=== PATIENT | male | born 1940 | race Caucasian/White ===

== ENCOUNTER → 2019-02-25 08:39 | Outpatient (CLI) | payer MEDICARE, BC | END | disposition home or self-care (01) | LOC: D.RT 08:39 | PROVIDERS: ATTEND Internal Medicine Pulmonary Disease | DX: J44.9 Chronic obstructive pulmonary disease, unspecified (principal) ==

== ENCOUNTER 2020-09-30 22:27 | Inpatient (IN) | payer MEDICARE, BC ==
[~2020-09-30] VITALS: Ht 157.5 cm; Wt 43.5 kg
[2020-09-30] MEDS ORDERED: FUROSEMIDE20 MG PO (23:01)
[2020-09-30] MEDS ORDERED: LIDODERM 5 %1 PATCH TRANSDERM (23:02)
[2020-09-30] MEDS ORDERED: SENNA LAXATIVE8.6 MG PO (23:04)
[2020-09-30] MEDS ORDERED: ULTRAM50 MG PO (23:06)
[2020-09-30] MEDS ORDERED: BAYER CHEWABLE81 MG PO (23:07)
[2020-09-30] MEDS ORDERED: AZELASTINE137 MCG/0. NASAL (23:07)
[2020-09-30] MEDS ORDERED: PULMICORT0.5 MG/21 INH (23:08)
[2020-09-30] MEDS ORDERED: COREG 3.1253.125 MG PO (23:09)
[2020-09-30] MEDS ORDERED: PLAVIX75 MG PO (23:09)
[2020-09-30] MEDS ORDERED: ATROVENT 0.02%2.5 ML UPD (23:10)
[2020-09-30] MEDS ORDERED: MELATONIN5 M3 PO (23:11)
[2020-09-30] MEDS ORDERED: PROTONIX40 MG PO (23:11)
[2020-09-30] MEDS ORDERED: MULTI-DAY VITAM1 TAB PO (23:11)
[2020-09-30] MEDS ORDERED: ZOCOR20 MG PO (23:12)
[2020-09-30] MEDS ORDERED: DALIRESP250 MCG PO (23:12)
[2020-09-30] MEDS ORDERED: ZOLOFT100 MG PO (23:14)
[2020-09-30] MEDS ORDERED: ALBUTEROL SULF8.5 GM INH (23:14)
[2020-09-30] MEDS ORDERED: NITROSTAT0.4 MG SL (23:15)
--- NOTE | 2020-09-30 23:29 | NUR ---
RECEIVED PATIENT VIA EMS, HE IS AN ADMISSION FROM [facility] DUE TO AGGRESSIVE AND SEXUALLY INAPPROPRIATE BEHAVIOR AT THE PRISON. ON ARRIVAL HE WAS TALKATIVE, FRIENDLY AND MAKING JOKES, HE IS AWAKE, ALERT AND ORIENTED TO SELF ONLY, HE IS PLEASANT ON ADMISSION AND SMILES APPROPRIATLEY, HE HAS BEEN ORIENTED TO THE UNIT AND HIS ROOM AND THE UNIT RULES, HIS CODE NUMBER IS [id number] AND THIS NUMBER HAS BEEN GIVEN TO HIS SON, SUMIT ANNAJR. HE IS ON OXYGEN FOR COPD. WILL MONITOR PATIENT.
[2020-10-01 00:04] VITALS: BMI 17.9
[2020-10-01 07:01] LABS: BASOPHILS 1.5 % (0-2); EOSINOPHILS 4.8 % (0-7); HEMATOCRIT 26.2 % (42.0-54.0); HEMOGLOBIN 8.5 g/dL (13.5-17.5); MCH 27.2 pg (26.0-34.0); MCHC 32.6 g/dL (31.0-37.0); MCV 83.4 fL (80.0-100.0); MEAN PLATELET VOLUME 7.2 fL (7.4-10.4); NEUTROPHILS 67.7 % (40-80); PLATELET COUNT 266 10x3/uL (130-400); RBC 3.14 10x6/uL (4.20-6.10); RDW 18.9 % (11.5-14.5)
[2020-10-01 07:39] LABS: ALBUMIN 2.6 g/dL (3.4-5.0); ALKALINE PHOSPHATASE 76 U/L (30-120); ALT (SGPT) 23 U/L (10-68); BILIRUBIN - TOTAL 0.32 mg/dL (0.2-1.3); CALC OSMOLALITY 277 mosm/kg (275-300); CALCIUM 7.8 mg/dL (8.5-10.1); CARBON DIOXIDE 26.5 mmol/L (21.0-32.0); CHLORIDE - SERUM 105 mmol/L (98-107); CHOL - HDL RATIO 3.2 ratio (2.3-4.9); CHOLESTEROL, TOTAL 141 mg/dL (0-200); CREATININE - SERUM 0.7 mg/dL (0.6-1.3); GLUCOSE 71 mg/dL (74-106); HDL CHOLESTEROL 44 mg/dL (32-96); LDL CHOLESTEROL 78 mg/dL (0-100); LDL-HDL RATIO 1.8 ratio (1.5-3.5); POTASSIUM - SERUM 3.8 mmol/L (3.5-5.1); PROTEIN - SERUM 5.8 g/dL (6.4-8.2); SODIUM 139 mmol/L (136-145); THYROID STIMULATING HORMONE 0.16 uIU/mL (0.36-3.74); TRIGLYCERIDE 96 mg/dL (30-200); UREA NITROGEN 17 mg/dL (7-18); eGFR NON AFRICAN AMERICAN > 90 mL/min (90-120)
[2020-10-01 08:04] VITALS: BP 153/66
[2020-10-01 11:32] VITALS: BP 153/66
[2020-10-01 13:02] LABS: T4 THYROXINE 6.2 ug/dL (4.7-13.3)
[2020-10-01 13:05] VITALS: Ht 157.5 cm; Wt 43.5 kg
--- NOTE | 2020-10-01 15:28 | NUR ---
Rec'd patient this am sitting by nurses station in a w/c. He is humped over at his waist. He is A/O times 1 to person. He did not have meds ordered to be taken this am. He is on oxygen at 2 liters via nasal cannula. He is easily aggitated and argumentive. He uses foul language often. This nurse has not observed or noted any inappro. sexual behaviors. He is just aggressive and argumentive with staff. He will move his w/c in the pathway for staff and patients and will not move until staff moves his w/c. He is not redirectable. He would not participate in group therapy today.
[2020-10-01 20:00] VITALS: BP 146/74
--- NOTE | 2020-10-02 00:20 | NUR ---
RECEIVED PATIENT IN DAYROOM, SITTING CALMLY, ON OXYGEN, NO NEGATIVE BEHAVIORS NOTED. VERY PLEASANT AT THIS TIME. COMPLIANT WITH MEDS. WILL FOLLOW POC
[2020-10-02 07:14] LABS: RAPID PLASMA REAGIN Non Reactive (Non Reactive)
[2020-10-02 10:36] VITALS: BP 152/89
--- NOTE | 2020-10-02 17:28 | NUR ---
ALERT, CONFUSED, COMBATIVE AT TIMES WITH RE-DIRECTION. MEDS ADMIN PER ORDERS WITH COMPLETE MED COMPLIANCE NOTED. NO ADVERSE REACTION TO MEDS. RECEIVES UPDRAFTS ON SCHEDULE PER RT. CONTINUE PLAN OF CARE.
--- NOTE | 2020-10-02 18:55 | NUR ---
PATIENT EXPERIENCING ANXIETY, YELLING, CURSING, AND HITTING STAFF. ATIVAN 0.5 MG AND HALDOL 2 MG ADMIN IM. MONTY WELL.
[2020-10-02 20:00] VITALS: BP 137/60
--- NOTE | 2020-10-03 00:26 | NUR ---
RECEIVED PATIENT IN HALLWAY NEAR NURSE'S STATION, SITTING CALMLY, HE WAS GIVEN A PRN ON PREVIOUS SHIFT. HE IS VERY CONFUSED. COMPLIANT WITH MEDS. WILL FOLLOW POC
[2020-10-03 07:19] LABS: BASOPHILS 1.7 % (0-2); EOSINOPHILS 4.9 % (0-7); HEMATOCRIT 30.8 % (42.0-54.0); HEMOGLOBIN 10.3 g/dL (13.5-17.5); LYMPHOCYTES 14.7 % (15-50); MCH 27.6 pg (26.0-34.0); MCHC 33.4 g/dL (31.0-37.0); MCV 82.6 fL (80.0-100.0); MEAN PLATELET VOLUME 6.9 fL (7.4-10.4); MONOCYTES 7.7 % (2-11); RBC 3.73 10x6/uL (4.20-6.10); RDW 19.2 % (11.5-14.5); RETIC 1.38 % (0.45-2.28); WBC 5.8 10x3/uL (4.8-10.8)
[2020-10-03 07:22] LABS: PLATELET COUNT 347 10x3/uL (130-400)
[2020-10-03 07:30] VITALS: BP 166/64
[2020-10-03 07:31] LABS: % SATURATION 21 % (15-55); IRON 37 ug/dl (35-150); TOTAL IRON BIND CAPACITY 171 ug/dl (260-445); UNSAT IRON BIND CAPACITY 134 ug/dl (150-375)
--- NOTE | 2020-10-03 17:36 | NUR ---
Alert, calm, difficult to re-direct, no aggression thus far this shift. Has difficulty following directions. Meds admin. per orders with complete med compliance noted. No adverse reaction to meds. Continue plan of care, monitoring for aggression and inappropriate behavior.
[2020-10-03 23:36] VITALS: BP 164/57
--- NOTE | 2020-10-04 00:03 | NUR ---
RECEIVED IN HALLWAY OUTSIDE OF NURSES STATION. RESTING EYES OPEN IN A RECLINER. RESTLESS AT TIMES. CALM AND COOPERATIVE WITH CARE AND ASSESSMENT. NO SIGNS OF AGGRESSION. REDIRECT AND REORIENT NEEDED. RESTING IN BED WITH EYES CLOSED AT THIS TIME. CONTINUE PLAN OF CARE.
[2020-10-04 07:30] VITALS: BP 137/59
--- NOTE | 2020-10-04 12:15 | NUR ---
RECEIVED IN HALLWAY OUTSIDE OF NURSES STATION. SITTING IN CHAIR. CALM AND COOPERATIVE WITH CARE AND ASSESSMENT. NO AGGRESSIVE BEHAVIOR BUT DOES BECOME AGITATED WITH REDIRECTION AT TIMES. NO SEXUALLY INAPPROPRIATE BEHAVIOR. REDIRECT AND REORIENT NEEDED. EATING LUNCH AT THIS TIME. CONTINUE PLAN OF CARE.
--- NOTE | 2020-10-04 20:28 | NUR ---
RECEIVED IN HALLWAY OUTSIDE OF NURSES STATION. SOCIAL WITH STAFF AND PEERS. CALM AND COOPERATIVE WITH CARE AND ASSESSMENT. NO SIGNS OF AGGRESSION. REDIRECT AND REORIENT NEEDED. CONTINUES TO SIT QUIETLY IN HALLWAY. CONTINUE PLAN OF CARE.
[2020-10-04 23:05] VITALS: BP 146/65
[2020-10-05 07:11] LABS: BACTERIA FEW HPF (NONE SEEN); BILIRUBIN NEGATIVE (NEGATIVE); KETONE NEGATIVE (NEGATIVE); NITRITE NEGATIVE (NEGATIVE); SQUAMOUS EPITHELIAL 0-5 HPF (0-4); UROBILINOGEN NORMAL mg/dL (< 2); WHITE CELLS - URINE 0-5 HPF (0-1)
[2020-10-05 08:00] VITALS: BP 102/57
--- NOTE | 2020-10-05 08:00 | NUR ---
RECEIVED PATIENT SITTING IN RECLINING CHAIR IN THE HALLWAY. [employer] REPORTED TO NURSE PATIENT'S O2 SAT LOW AT THIS TIME. NURSE ASSESSED PT AT THIS TIME. VITAL SIGNS: BLOOD PRESSURE 102/57 TEMPERATURE 100.8 AX. PULSE 52 O2 SAT 77 AT 2L VIA NASAL CANNULA AT THIS TIME. RESPIRATORY CONTACTED AT THIS TIME. DR. BENSON CONTACTED. NEW ORDERS FOR ABG'S, CBC, BMP,and CHEST X-RAY STAT. NEW ORDER TO START IV AND INFUSE INFUSE NORMAL SALINE AT 75 MLS/ HOUR. NEW ORDER TO START lEVAQUIN 500 MG IV DAILY X7 DAYS FOR PNEUMONIA. NEW ORDER TO CONSULT PULMONOLOGY. NEW ORDER TO RESTART LASIX 10 MG P.O. EVERY OTHER DAY AT THIS TIME. ALL NEW ORDERS VERIFIED AND READ BACK. oRDERS TO TRANSFER PATIENT TO MED FLOOR PER ORDER FAXED TO [facility] AT THIS TIME. AWAITING ON A BED ON MEDICAL FLOOR AT THIS TIME. ATTEMPTED TO CONTACT PT'S SON FOR UPDATE X3. NO ANSWER AT THIS TIME AND UNABLE TO LEAVE VOICEMAIL. WILL CONTINUE TO CONTACT. WILL CPOC.
[2020-10-05 09:30] LABS: BASOPHILS 0.6 % (0-2); EOSINOPHILS 0 % (0-7); HEMATOCRIT 32.7 % (42.0-54.0); HEMOGLOBIN 10.6 g/dL (13.5-17.5); LYMPHOCYTES 4.6 % (15-50); MCH 26.8 pg (26.0-34.0); MCHC 32.5 g/dL (31.0-37.0); MCV 82.4 fL (80.0-100.0); MEAN PLATELET VOLUME 6.8 fL (7.4-10.4); MONOCYTES 5.4 % (2-11); NEUTROPHILS 89.4 % (40-80); PLATELET COUNT 318 10x3/uL (130-400); RBC 3.97 10x6/uL (4.20-6.10); RDW 19.4 % (11.5-14.5); WBC 11.2 10x3/uL (4.8-10.8)
[2020-10-05 09:42] LABS: CALC OSMOLALITY 281 mosm/kg (275-300); CALCIUM 8.6 mg/dL (8.5-10.1); CARBON DIOXIDE 27.5 mmol/L (21.0-32.0); CHLORIDE - SERUM 103 mmol/L (98-107); CREATININE - SERUM 0.9 mg/dL (0.6-1.3); GLUCOSE 108 mg/dL (74-106); POTASSIUM - SERUM 4.2 mmol/L (3.5-5.1); SODIUM 136 mmol/L (136-145); UREA NITROGEN 37 mg/dL (7-18); eGFR NON AFRICAN AMERICAN 86 mL/min (90-120)
--- NOTE | 2020-10-05 10:00 | NUR ---
this nurse contacted medical records and requested chest x-ray from [facility] visit on September 24, 2020. Release of information form faxed per request to Lilliana at medical records at [facility]. Comparison of results on 09/24/2020 and results of today's chest x-ray compared and reviewed with Cathleen Solis APRN at this time. Copy of the paper results noted in pts chart.
[2020-10-05] MEDS ORDERED: COREG6.25 MG PO (10:37)
[2020-10-05] MEDS ORDERED: SEROQUEL25 MG PO (10:38)
[2020-10-05] MEDS ORDERED: FOLIC ACID1 MG PO (10:39)
--- NOTE | 2020-10-05 14:00 | NUR ---
22-GAUGE IV PLACED INTO LEFT UPPER PER Pradeep STEVEN RN AT THIS TIME. N/S AT 75ML/HR VIA PUMP. MEDICATIONS ADMINISTERED PER MYA STEVEN RN. INITIAL DOSE OF LEVAQUIN 500MG IV STARTED PER ORDER. DR. BENSON CHANGED LEVAQUIN FROM 750 MG TO 500MG IV DUE TO ELEVATED BUN AT THIS TIME. WILL CPOC.
--- NOTE | 2020-10-05 15:08 | NUR ---
PT UNABLE TO SWALLOW MEDICATIONS CRUSHED IN PUDDING AT THIS TIME. DR. BENSON NOTIFIED. LASIX 10MG PO CHANGED TO IV AT THIS TIME. WILL CPOC.
--- NOTE | 2020-10-05 16:15 | NUR ---
REPORT CALLED TO [facility]. ALL DISCHARGE PAPERWORK FAXED AND COPY SENT WITH PT AT THIS TIME. PT TRANSPORTED TO [facility] 2222 PER STAFF X 2. NO S/SX OF DISTRESS NOTED.
--- NOTE | 2020-10-06 12:46 | DS ---
PATIENT:SUMIT ANNA :36 MEDICAL RECORD: [id number] DISCHARGE SUMMARY ADMISSION DATE: 09/30/20 DISCHARGE DATE: 10/05/20 IDENTIFYING DATA: The patient is 79 years old and he was admitted to the hospital on a voluntary basis. CHIEF COMPLAINT: Aggression. HISTORY OF PRESENT ILLNESS: The patient is seriously medically ill person who was at [facility]. He has COPD and is oxygen dependent. He also has hypertension and a long history of dementia. He is only oriented to person. He apparently became aggressive at the assisted and was referred to us to address these behaviors. HOSPITAL COURSE: The patient was admitted to the behavioral unit on 09/30. He was started on medication for his agitation, but unfortunately on 10/05, he was found to have reduced breath sounds and an x-ray revealed pneumonia. He was subsequently transferred to the medical floor for ongoing management. DISCHARGE DIAGNOSES: AXIS I: Major neurocognitive disorder of the Alzheimer's type with behavioral disturbances. AXIS II: None. AXIS III: Pneumonia, chronic obstructive pulmonary disease, hypertension. AXIS IV: Moderate. AXIS V: Global assessment of functioning is 35. PLAN: At the time of discharge, the patient was not representing an acute danger to others. His long-term prognosis is guarded. TRANSINT:[id number] Voice Confirmation ID: [id number] DOCUMENT ID: [id number] POOJA ANGULO MD at 1246 CC: [id number] DICTATION DATE: 10/05/20 172 [employer]ICING AND INVENTORY CLERK: 10/06/20 0300 DIS IN 10/05/20 [place] [id number] [place] [id number]
== END 2020-10-05 16:15 | disposition short-term general hospital (02) | DRG 56 ==
LOC: D.PSYCH 22:27
PROVIDERS: Family Medicine; ADMIT Psychiatry & Neurology Psychiatry; ATTEND Psychiatry & Neurology Psychiatry
DX: G30.1 Alzheimer's disease with late onset (principal); J18.9 Pneumonia, unspecified organism; F02.81 Dementia in other diseases classified elsewhere, unspecified severity, with behavioral disturbance; J43.9 Emphysema, unspecified; I10 Essential (primary) hypertension; F34.1 Dysthymic disorder; K21.9 Gastro-esophageal reflux disease without esophagitis; E78.5 Hyperlipidemia, unspecified; K59.01 Slow transit constipation; J30.9 Allergic rhinitis, unspecified; D64.9 Anemia, unspecified; E88.09 Other disorders of plasma-protein metabolism, not elsewhere classified; E05.80 Other thyrotoxicosis without thyrotoxic crisis or storm

== ENCOUNTER 2020-10-05 16:58 | Inpatient (IN) | payer MEDICARE, BC ==
[~2020-10-05] VITALS: Ht 157.5 cm; Wt 44.5 kg
--- NOTE | 2020-10-05 16:30 | NUR ---
RECEIVED TO ROOM [address] [facility]. NON RESPONSIVE TO VERBAL OR TACTILE STIMULATION. WON'T FOLLOW SIMPLE COMMANDS TO MOVE EYES. SKIN IS INTACT WITHOUT REDNESS. SOME REDNESS NOTED TO SPINE AND HEELS, NO BROKEN SKIN. IV TO LEFT FOREARM IS PATENT WITHOUT REDNESS AT INSERTION SITE. INCONTINENT OF URINE SKIN CARE PER STAFF.
[~2020-10-05 16:58] MED LIST: ALBUTEROL SULF8.5 GM INH; ATROVENT 0.02%2.5 ML UPD; AZELASTINE137 MCG/0. NASAL; BAYER CHEWABLE81 MG PO; COREG 3.1253.125 MG PO; COREG6.25 MG PO; DALIRESP250 MCG PO; FOLIC ACID1 MG PO; FUROSEMIDE20 MG PO; LIDODERM 5 %1 PATCH TRANSDERM; MELATONIN5 M3 PO; MULTI-DAY VITAM1 TAB PO; NITROSTAT0.4 MG SL; PLAVIX75 MG PO; PROTONIX40 MG PO; PULMICORT0.5 MG/21 INH; SENNA LAXATIVE8.6 MG PO; SEROQUEL25 MG PO; ULTRAM50 MG PO; ZOCOR20 MG PO; ZOLOFT100 MG PO
[2020-10-05 17:09] VITALS: BP 99/45; BMI 17.9
--- NOTE | 2020-10-05 18:40 | NUR ---
NO CHANGES SINCE HE ARRIVED. NO NEEDS NOTED.
[2020-10-05 19:35] VITALS: BP 110/48
--- NOTE | 2020-10-06 04:45 | NUR ---
PATIENT HAD WET SOUNDING LUNGS AND STARTED OUT AT 6 L NC DUE TO SATURATIONS IN THE 80'S, WE BUMPED HIM UP TO 9 L NC AND HE CAME UP TO THE 90'S. LATER HE DROPPED DOWN TO 84 I CALLED RESPIRATORY AND WE PUT HIM ON HIGH FLOW AT 15L NC. I CALLED AND SPOKE WITH DR. BENSON AND HE ORDERED 40MG LASIX IV 1 TIME. PATIENT CONTINUES TO HOLLAR OUT. HE IS CURRENTLY RESTING IN BED.
[2020-10-06 05:15] VITALS: BP 101/52
--- NOTE | 2020-10-06 08:58 | NUR ---
AWAKE AND CONFUSED. COMBATIVE AND REFUSING ASSESSMENT AT THIS TIME. TECH IN ROOM ATTEMPTING BLOOD DRAW. BED IN LOWEST POSITION, BED RAILS X2, CALL LIGHT WITHIN REACH. WILL CONTINUE POC. O2 NASAL CANNULA IN PLACE AT THIS TIME.
[2020-10-06 09:15] LABS: BASOPHILS 0.1 % (0-2); EOSINOPHILS 0 % (0-7); HEMATOCRIT 27.5 % (42.0-54.0); HEMOGLOBIN 8.9 g/dL (13.5-17.5); LYMPHOCYTES 3.7 % (15-50); MCH 26.6 pg (26.0-34.0); MCHC 32.3 g/dL (31.0-37.0); MCV 82.3 fL (80.0-100.0); MEAN PLATELET VOLUME 7.2 fL (7.4-10.4); MONOCYTES 5.8 % (2-11); NEUTROPHILS 90.4 % (40-80); PLATELET COUNT 277 10x3/uL (130-400); RBC 3.34 10x6/uL (4.20-6.10); RDW 19.6 % (11.5-14.5); WBC 11.6 10x3/uL (4.8-10.8)
[2020-10-06 09:31] LABS: ALBUMIN 2.4 g/dL (3.4-5.0); ALKALINE PHOSPHATASE 56 U/L (30-120); ALT (SGPT) 21 U/L (10-68); BILIRUBIN - TOTAL 0.59 mg/dL (0.2-1.3); CALC OSMOLALITY 292 mosm/kg (275-300); CALCIUM 7.8 mg/dL (8.5-10.1); CARBON DIOXIDE 27.9 mmol/L (21.0-32.0); CHLORIDE - SERUM 106 mmol/L (98-107); CREATININE - SERUM 0.9 mg/dL (0.6-1.3); GLUCOSE 110 mg/dL (74-106); PROTEIN - SERUM 5.5 g/dL (6.4-8.2); SODIUM 141 mmol/L (136-145); UREA NITROGEN 42 mg/dL (7-18); eGFR NON AFRICAN AMERICAN 86 mL/min (90-120)
[2020-10-06 09:42] LABS: POTASSIUM - SERUM 3.4 mmol/L (3.5-5.1)
--- NOTE | 2020-10-06 12:48 | NUR ---
I have reviewed this patient and I concur with the Shift Assessment completed by the Licensed Practical Nurse today this shift.
[2020-10-06 14:51] VITALS: Ht 157.5 cm; Wt 44.5 kg
--- NOTE | 2020-10-06 17:24 | NUR ---
HUNG IV ABX AND REPLACED IV FLUID BAG. TOLERATING WELL. LESS COMBATIVE THIS EVENING. RESTING IN BED. DENIES ANY NEEDS. BED IN LOWEST POSITION, BED RAILS X2, CALL LIGHT WITHIN REACH. WILL CONTINUE POC.
--- NOTE | 2020-10-06 18:29 | NUR ---
HUNG IV ABX, TOLERATING WELL. RESTING IN BED SUPINE. WILL CONTINUE POC.
[2020-10-06 20:00] VITALS: BP 126/44
--- NOTE | 2020-10-07 03:13 | NUR ---
I have reviewed this patient and I concur with the Shift Assessment completed by the Licensed Practical Nurse today this shift.
[2020-10-07 04:00] VITALS: BP 112/50
--- NOTE | 2020-10-07 08:00 | NUR ---
PATIENT IN BED WITH IV INTACT. NO COMPLAINTS OR SIGNS OF DISTRESS. PATIENT CONFUSED. O2 ON. WANTS TO EAT. EXPLAINED STILL NPO. BA ON. CALL LIGHT WITHIN REACH.
[2020-10-07 08:46] VITALS: BP 135/53
--- NOTE | 2020-10-07 10:30 | NUR ---
PATIENT IN BED WITH IV INTACT. NO COMPLAINTS OR SIGNS OF DISTRESS. PLEASANTLY CONFUSED. SPOKE WITH SON. CALL LIGHT WITHIN REACH.
[2020-10-07 13:10] VITALS: BP 139/52
--- NOTE | 2020-10-07 13:10 | NUR ---
PATIENT NEW ORDERS FOR PUREE DIET AND NECTAR THICK LIQUIDS. ATE A WHOLE PUDDING AND TOOK ANTIBIOTICS. DRANK 240 ML OF NECTAR THICK MILK. TOLERATED WITH NO PROBLEMS. NO CHOKING OR COUGHIN. IV REMOVED BECAUSE CLOTTED OFF. GOING BACK TO [place] LATER. CALL LIGHT WITHIN REACH.
--- NOTE | 2020-10-07 13:21 | NUR ---
Nutrition follow-up: Pts diet advanced to puree with nectar thick liquids per speech pathologist Labs reviewed Wt: 97# BIPAP PRN Will provide food choices with selective menus and honor food preferences within diet modification restricitons. Will offer nutritional supplements. RDN will follow-up pts progress toward nutrition goals with 3-5 days.
[2020-10-07] MEDS ORDERED: ZITHROMAX250 MG PO (13:29)
[2020-10-07] MEDS ORDERED: LEVOFLOXACIN500 MG PO (13:29)
[2020-10-07] MEDS ORDERED: IPRAT-ALBUT 0.5-3 ML UPD (13:33)
[2020-10-07] MEDS ORDERED: PERFOROMIS20 MCG/21 UPD (13:33)
--- NOTE | 2020-10-07 15:30 | NUR ---
REPORT CALLED TO [facility] TO [facility].
--- NOTE | 2020-10-07 15:45 | NUR ---
CALLED SON AND LET HIM KNOW THAT PATIENT IS GOING BACK TO [facility]. HAD TO LEAVE A VOICE MESSAGE. NO ANSWER AT THIS TIME.
--- NOTE | 2020-10-07 15:56 | NUR ---
[facility] HERE TO TRANSPORT PATIENT TO [facility].
== END 2020-10-07 15:50 | DRG 177 ==
LOC: D.MS 16:58
PROVIDERS: ADMIT Family Medicine; ATTEND Family Medicine
DX: J69.0 Pneumonitis due to inhalation of food and vomit (principal); J96.01 Acute respiratory failure with hypoxia; F02.81 Dementia in other diseases classified elsewhere, unspecified severity, with behavioral disturbance; N39.0 Urinary tract infection, site not specified; Z68.1 Body mass index [BMI] 19.9 or less, adult; J43.9 Emphysema, unspecified; G30.1 Alzheimer's disease with late onset; I10 Essential (primary) hypertension; F34.1 Dysthymic disorder; K21.9 Gastro-esophageal reflux disease without esophagitis; E78.00 Pure hypercholesterolemia, unspecified; K59.01 Slow transit constipation; E05.90 Thyrotoxicosis, unspecified without thyrotoxic crisis or storm; E78.5 Hyperlipidemia, unspecified; R13.12 Dysphagia, oropharyngeal phase; R53.81 Other malaise; Z66 Do not resuscitate